=== PATIENT | male | born 1950 | race Caucasian/White ===

== ENCOUNTER 2017-04-24 09:08 | Emergency (ER) | payer OTHER ==
[~2017-04-24] VITALS: Ht 180.3 cm; Wt 85.6 kg
[~2017-04-24 09:08] MED LIST: ASPI81TA21 PO; CLOP75 PO; RAMI1.252 PO; TRAM50 PO; WELC625T2 PO; ZOCO5TAB PO
[2017-04-24 09:13] VITALS: BP 124/64; PULSE 82; RESP 16; TEMP 97.7; O2SAT 98
--- NOTE | 2017-04-24 09:24 | PD ---
HPI Chief Complaint: Cold / Flu Symptoms Time Seen by Provider: 09:23 Travel History International Travel<30 days: No Contact w/Intl Traveler<30days: No Traveled to known affect area: No History of Present Illness HPI 67-year-old male with long history of smoking presents to emergency department with cough 3 weeks. Patient complains of sinus congestion, headache , pressure, postnasal drip. Cough worse at night. Productive cough through the day. He also continues to have chest congestion but not chest pain. Patient has been on amoxicillin 875 twice daily for 2 weeks without improvement. Patient has no history of needing a inhaler or prednisone in the past. Patient denies significant fever, nausea, vomiting, or diarrhea. He has no known drug allergies. PFSH Past Medical History Hx Anticoagulant Therapy: Yes (plavix, asa 81mg) Cardiac Catheterization: Yes Cardiovascular Problems: Yes (htn on meds, 8 stents, [place]) High Cholesterol: Yes Coronary Artery Disease: Yes Diminished Hearing: No Past Surgical History Coronary Stent: Yes Social History Alcohol Use: No Tobacco Use: Yes (1/2 PPD) Substance Use: No Allergies-Medications (Allergen,Severity, Reaction): Coded Allergies: No Known Allergies (Unverified Adverse Reaction, Unknown, 04/24/17) Reported Meds & Prescriptions Reported Meds & Active Scripts Active Flonase Nasal [place] (Fluticasone Nasal [place]) 50 Mcg/Act [place] 100 Mcg EACH NARE BID Ventolin Hfa 18 GM Inh (Albuterol Sulfate) 90 Mcg/Act Aer 2 Puff INH Q4-6H PRN Prednisone (21) 10 mg tab Dose Pack (Prednisone) 10 Mg Pack 10 Mg PO DIRECTED Levaquin (Levofloxacin) 750 Mg Tablet 750 Mg PO DAILY 10 Days Reported Lansoprazole 30 Mg Capdr 30 Mg PO DAILY Vytorin (Ezetimibe-Simvastatin) 10-80 Mg Tab 1 Tab PO HS Aspirin 81 Mg Chew 81 Mg CHEW DAILY Ramipril 10 Mg Cap 10 Mg PO DAILY Plavix (Clopidogrel Bisulfate) 75 Mg Tab 75 Mg PO DAILY Welchol (Colesevelam HCl) 625 Mg Tab 1,875 Mg PO BID Diazepam 5 Mg Tab 5 Mg PO DAILY Review of Systems Except as stated in HPI: all other systems reviewed are Neg General / Constitutional: No: Fever, Chills Eyes: No: Visual changes HENT: Positive: Headaches, Sore Throat, Rhinitis, Rhinorrhea, Congestion, Earache (right ear pressure), No: Vertigo, Lightheadedness, Nosebleed, Neck Stiffness, Neck Pain, Masses, Gingival Bleeding, Dental Difficulties, Ear Discharge Cardiovascular: No: Chest Pain or Discomfort Respiratory: Positive: Cough, No: Shortness of Breath, Wheezing, Sneezing, Orthopnea, Hemoptysis, Night Sweats, Pleuritic Pain Gastrointestinal: No: Nausea, Vomiting, Diarrhea, Abdominal Pain Genitourinary: No: Dysuria Musculoskeletal: No: Pain Skin: No Rash Neurologic: No: Weakness Psychiatric: No: Depression Endocrine: No: Polydipsia Hematologic/Lymphatic: No: Easy Bruising Physical Exam Narrative GENERAL: Patient appears nonacute distress. SKIN: Warm and dry. Normal color. Normal turgor. HEAD: Atraumatic. Normocephalic. EYES: Pupils equal and round. No scleral icterus. No injection or drainage. ENT: No nasal bleeding or discharge. Mucous membranes pink and moist. Patient has moderate sinus tenderness with palpation to the frontal and maxillary sinuses bilaterally. Right TM is dull without significant injection. Posterior pharynx appears somewhat wrong with cobblestoning and postnasal drip present. Tonsils are normal in appearance without exudate. NECK: Trachea midline. Supple and nontender.. CARDIOVASCULAR: Regular rate and rhythm. RESPIRATORY: No accessory muscle use. Coarse breath sounds throughout to auscultation. No significant wheezes or rales appreciated. Breath sounds equal bilaterally. GASTROINTESTINAL: Abdomen soft, non-tender, nondistended. Hepatic and splenic margins not palpable. MUSCULOSKELETAL: Extremities without clubbing, cyanosis, or edema. No obvious deformities. NEUROLOGICAL: Awake and alert. No obvious cranial nerve deficits. Motor grossly within normal limits. Five out of 5 muscle strength in the arms and legs. Normal speech. PSYCHIATRIC: Appropriate mood and affect; insight and judgment normal. Data Data Last Documented VS Vital Signs Date Time Temp Pulse Resp B/P (MAP) Pulse Ox O2 Delivery O2 Flow Rate FiO2 04/24/17 09:13 97.7 82 16 124/64 (84) 98 Orders Orders Albuterol-Ipratropium Neb (Duoneb Neb) (04/24/17 09:30) Prednisone (Deltasone) (04/24/17 09:30) Levofloxacin (Levaquin) (04/24/17 09:30) Chest, Pa & Lat (04/24/17 ) [facility] Medical Decision Making Medical Screen Exam Complete: Yes Emergency Medical Condition: Yes Medical Record Reviewed: Yes Differential Diagnosis Chronic sinusitis. COPD exacerbation. Pneumonia. Narrative Course Chest x-ray is ordered. Patient is given Levaquin 750 mg by mouth now. Patient is given 60 mg prednisone by mouth now. Patient is given DuoNeb 1 now. Chest x-ray shows no acute process per radiologist. Patient continued on Levaquin 750 daily for 10 days. Patient continued on prednisone dosepak as prescribed. Patient is given Flonase nasal spray 2 sprays each nostril daily. Patient continued on albuterol metered-dose inhaler 2 puffs every 4-6 hours when necessary cough and wheeze. Patient is encouraged to quit smoking as soon as possible. Patient should follow with his primary care physician in the next week to ensure improvement. Diagnosis Primary Impression: Sinusitis Qualified Codes: J32.4 - Chronic pansinusitis Additional Impression: Bronchitis Referrals: Primary Care Physician Patient Instructions: General Instructions, How to Stop Smoking (DC), How to Use a Metered-Dose Inhaler (DC) Additional Instructions: Patient continued on Levaquin 750 daily for 10 days. Patient continued on prednisone dosepak as prescribed. Patient is given Flonase nasal spray 2 sprays each nostril daily. Patient continued on albuterol metered-dose inhaler 2 puffs every 4-6 hours when necessary cough and wheeze. Patient is encouraged to quit smoking as soon as possible. Patient should follow with his primary care physician in the next week to ensure improvement. Med/Other Pt SpecificInfo: Prescription(s) given Scripts Fluticasone Nasal [place] (Flonase Nasal [place]) 50 Mcg/Act [place] 100 MCG EACH NARE BID for Allergies, #1 BOTTLE 0 Refills Prov: Billy Barron MD 04/24/17 Albuterol 18 GM Inh (Ventolin Hfa 18 GM Inh) 90 Mcg/Act Aer 2 PUFF INH Q4-6H Y for SHORTNESS OF BREATH, #1 INHALER 0 Refills Prov: Billy Barron MD 04/24/17 Prednisone (21) 10 mg tab Dose Pack (Prednisone (21) 10 mg tab Dose Pack) 10 Mg Pack 10 MG PO DIRECTED for Inflammation, #1 DSPK 0 Refills Prov: Billy Barron MD 04/24/17 Levofloxacin (Levaquin) 750 Mg Tablet 750 MG PO DAILY for Infection for 10 Days, #10 TAB 0 Refills Prov: Billy Barron MD 04/24/17 Disposition: 01 DISCHARGE HOME Condition: Stable Hieu Bush Apr 24, 2017 09:24
[2017-04-24] MEDS ORDERED: PLAV75TA29 PO (09:27)
[2017-04-24] MEDS ORDERED: DIAZ5TAB PO (09:27)
[2017-04-24] MEDS ORDERED: COLE625 PO (09:27)
[2017-04-24] MEDS ORDERED: VYTO10TA25 PO (09:27)
[2017-04-24] MEDS ORDERED: ASPI-516 CHEW (09:27)
[2017-04-24] MEDS ORDERED: LANS30CA PO (09:27)
[2017-04-24] MEDS ORDERED: RAMI10CA PO (09:27)
[2017-04-24] MEDS ORDERED: LEVOFLOXACIN 750 MG TAB PO ONE (09:30)
[2017-04-24] MEDS ORDERED: predniSONE 20 MG TAB PO ONE (09:30)
[2017-04-24] MEDS ORDERED: RESP: ALBUTEROL 2.5 MG/IPRATROPIUM 0.5 MG NEB (SCH) INH ONE (09:30)
[2017-04-24] MEDS ORDERED: LEVA750T9 PO (10:16)
[2017-04-24] MEDS ORDERED: PRED10PA PO (10:16)
[2017-04-24] MEDS ORDERED: VENTAER INH (10:16)
[2017-04-24] MEDS ORDERED: FLUT1SPR5 EACH NARE (10:20)
--- NOTE | 2017-04-24 10:35 | RADRPT ---
EXAM DATE/TIME: 04/24/2017 00:00 [facility] COMPARISON: No previous studies available for comparison. INDICATIONS : Cough, congestion, sinus pressure x 3 weeks. MEDICAL HISTORY : Myocardial infarction. Hypertension Hypercholesterolemia. Smoker. SURGICAL HISTORY : Cardiac cath w/ stent. ENCOUNTER: Initial ACUITY: 3 weeks PAIN SCORE: 0/10 LOCATION: chest FINDINGS: PA and lateral views of the chest demonstrate the lungs to be symmetrically aerated without evidence of mass, infiltrate or effusion. The cardiomediastinal contours are unremarkable. Osseous structure s are intact. CONCLUSION: 1. No acute cardiopulmonary disease. Juancarlos Kaplan MD on April 24, 2017 at 10:33 Board Certified Radiologist. This report was verified electronically.
== END 2017-04-24 10:44 | disposition home or self-care (01) ==
LOC: PHEFT 09:08
DX: J32.4 Chronic pansinusitis (principal); J40 Bronchitis, not specified as acute or chronic; E78.00 Pure hypercholesterolemia, unspecified; F17.210 Nicotine dependence, cigarettes, uncomplicated; I10 Essential (primary) hypertension; I25.10 Atherosclerotic heart disease of native coronary artery without angina pectoris; Z79.02 Long term (current) use of antithrombotics/antiplatelets; Z79.82 Long term (current) use of aspirin; Z95.5 Presence of coronary angioplasty implant and graft
CPT/HCPCS: 71020; 94664; 99284; J7512

== ENCOUNTER 2017-08-11 07:23 | Emergency (ER) | payer OTHER ==
[~2017-08-11] VITALS: Ht 180.3 cm; Wt 86.7 kg
[~2017-08-11 07:23] MED LIST changes: +ASPI-516 CHEW; -ASPI81TA21 PO; -CLOP75 PO; +COLE625 PO; +DIAZ5TAB PO; +FLUT1SPR5 EACH NARE; +LANS30CA PO; +LEVA750T9 PO; +PLAV75TA29 PO; +PRED10PA PO; -RAMI1.252 PO; +RAMI10CA PO; -TRAM50 PO; +VENTAER INH; +VYTO10TA25 PO; -WELC625T2 PO; -ZOCO5TAB PO
[2017-08-11 07:25] VITALS: BP 119/64; PULSE 77; RESP 16; TEMP 97.8; O2SAT 97
--- NOTE | 2017-08-11 07:31 | PD ---
HPI Chief Complaint: ENT Complaint Time Seen by Provider: 07:31 Travel History International Travel<30 days: No Contact w/Intl Traveler<30days: No Traveled to known affect area: No History of Present Illness HPI 67-year-old male came to the emergency room with his with history of sore throat. Patient says that every time he tries to swallow his throat hurts. This started off as a pneumonia and respiratory infection 1 month ago. Patient had gone to urgent care and was given a prescription of Augmentin for 7 days and was told that he had some fluid in his ears. The last dose of the antibiotic as today. However patient says his symptoms have not improved. No history of fever or chills. Vital signs were stable. Patient is a smoker. He also has history of coronary artery disease with multiple stents. No history of chest pain. Patient is from [place] and is here on vacation. His primary care is in [place]. PFSH Past Medical History Narrative Medical List of his past medical, surgical, social and family history reviewed from the nursing note. Hx Anticoagulant Therapy: Yes Cardiac Catheterization: Yes Cardiovascular Problems: Yes (CHOL) High Cholesterol: Yes Coronary Artery Disease: Yes Diabetes: No Diminished Hearing: No Past Surgical History Cardiac Surgery: Yes (STENTS) Coronary Stent: Yes Social History Alcohol Use: No Tobacco Use: Yes (4PPD) Substance Use: No Allergies-Medications (Allergen,Severity, Reaction): Coded Allergies: No Known Allergies (Unverified Adverse Reaction, Unknown, 08/11/17) Comments No known drug allergies. Reported Meds & Prescriptions Reported Meds & Active Scripts Active Flonase Nasal [place] (Fluticasone Nasal [place]) 50 Mcg/Act [place] 100 Mcg EACH NARE BID Ventolin Hfa 18 GM Inh (Albuterol Sulfate) 90 Mcg/Act Aer 2 Puff INH Q4-6H PRN Prednisone (21) 10 mg tab Dose Pack (Prednisone) 10 Mg Pack 10 Mg PO DIRECTED Levaquin (Levofloxacin) 750 Mg Tablet 750 Mg PO DAILY 10 Days Reported Lansoprazole 30 Mg Capdr 30 Mg PO DAILY Vytorin (Ezetimibe-Simvastatin) 10-80 Mg Tab 1 Tab PO HS Aspirin 81 Mg Chew 81 Mg CHEW DAILY Ramipril 10 Mg Cap 10 Mg PO DAILY Plavix (Clopidogrel Bisulfate) 75 Mg Tab 75 Mg PO DAILY Welchol (Colesevelam HCl) 625 Mg Tab 1,875 Mg PO BID Diazepam 5 Mg Tab 5 Mg PO DAILY Narrative Medication List of his home medications reviewed from the nursing note. Review of Systems Except as stated in HPI: all other systems reviewed are Neg HENT: Positive: Sore Throat Physical Exam Narrative GENERAL: Awake, alert, anxious, no obvious distress SKIN: Focused skin assessment warm/dry. HEAD: Atraumatic. Normocephalic. EYES: Pupils equal and round. No scleral icterus. No injection or drainage. ENT: No nasal bleeding or discharge. Mucous membranes pink and moist. No erythema or exudates of the pharynx. No stridor. NECK: Trachea midline. No JVD. CARDIOVASCULAR: Regular rate and rhythm. No murmur appreciated. RESPIRATORY: No accessory muscle use. Clear to auscultation. Breath sounds equal bilaterally. GASTROINTESTINAL: Abdomen soft, non-tender, nondistended. Hepatic and splenic margins not palpable. MUSCULOSKELETAL: No obvious deformities. No clubbing. No cyanosis. No edema. NEUROLOGICAL: Awake and alert. No obvious cranial nerve deficits. Motor grossly within normal limits. Normal speech. PSYCHIATRIC: Appropriate mood and affect; insight and judgment normal. Data Data Last Documented VS Orders Orders Complete Blood Count With Diff (08/11/17 07:37) Basic Metabolic Panel (Bmp) (08/11/17 07:37) Electrocardiogram (08/11/17 ) Ct Soft Tiss Neck W Iv Cont (08/11/17 ) Iohexol 350 Inj (Omnipaque 350 Inj) (08/11/17 08:43) Ed Discharge Order (08/11/17 09:32) Labs Laboratory Tests Test 08/11/17 07:35 White Blood Count 7.7 TH/MM3 Red Blood Count 5.61 MIL/MM3 Hemoglobin 16.6 GM/DL Hematocrit 48.7 % Mean Corpuscular Volume 86.8 FL Mean Corpuscular Hemoglobin 29.6 PG Mean Corpuscular Hemoglobin Concent 34.2 % Red Cell Distribution Width 13.4 % Platelet Count 144 TH/MM3 Mean Platelet Volume 8.6 FL Neutrophils (%) (Auto) 60.2 % Lymphocytes (%) (Auto) 26.0 % Monocytes (%) (Auto) 5.7 % Eosinophils (%) (Auto) 4.1 % Basophils (%) (Auto) 4.0 % Neutrophils # (Auto) 4.7 TH/MM3 Lymphocytes # (Auto) 2.0 TH/MM3 Monocytes # (Auto) 0.4 TH/MM3 Eosinophils # (Auto) 0.3 TH/MM3 Basophils # (Auto) 0.3 TH/MM3 CBC Comment DIFF FINAL Differential Comment Blood Urea Nitrogen 12 MG/DL Creatinine 0.96 MG/DL Random Glucose 108 MG/DL Calcium Level 8.8 MG/DL Sodium Level 139 MEQ/L Potassium Level 3.9 MEQ/L Chloride Level 106 MEQ/L Carbon Dioxide Level 28.9 MEQ/L Anion Gap 4 MEQ/L Estimat Glomerular Filtration Rate 78 ML/MIN MDM Medical Decision Making Medical Screen Exam Complete: Yes Emergency Medical Condition: Yes Medical Record Reviewed: Yes Interpretation(s) Twelve-lead EKG was reviewed by me. Sinus rhythm, normal axis, nonspecific ST- T wave changes. Heart rate of 76 bpm. Differential Diagnosis Throat mass, anxiety Narrative Course 9:30 AM blood test results of back and within acceptable limits. CT scan of the soft tissue of the neck is read as some sinus disease but otherwise negative. At this point given his complaints of not sure what else to do in the emergency room. There was a slight concerned if the throat pain has anything to do with angina but with negative EKG I am going to start the pursuit there. I will recommend him to quit smoking and follow up with his primary care when he goes back home. Patient will be discharged. Procedures EKG Prior to Arrival: No Diagnosis Primary Impression: Chronic throat pain Additional Impression: Needs smoking cessation education Referrals: Primary Care Physician Additional Instructions: Follow-up with your primary care when you get back home. Return to the ER if condition worsens or any other new concerns. You must consider quitting smoking since you have history of heart disease. Med/Other Pt SpecificInfo: No Change to Meds Disposition: DISCHARGE HOME Condition: Stable Mari Monreal MD Aug 11, 2017 07:31
[2017-08-11 08:06] LABS: AUTOMATED NEUTROPHIL # 4.7 TH/MM3 (1.8-7.7); BASOPHIL # 0.3 TH/MM3 (0-0.2); EOSINOPHIL # 0.3 TH/MM3 (0-0.4); EOSINOPHIL % 4.1 % (0.0-4.0); HEMATOCRIT 48.7 % (39.0-51.0); HEMOGLOBIN 16.6 GM/DL (13.0-17.0); MEAN CELL VOLUME 86.8 FL (80.0-100.0); MEAN CORPUSCULAR HEMOGLOBIN 29.6 PG (27.0-34.0); MEAN CORPUSCULAR HGB CONC 34.2 % (32.0-36.0); MEAN PLATELET VOLUME 8.6 FL (7.0-11.0); MONO % 5.7 % (0.0-8.0); MONOCYTE # 0.4 TH/MM3 (0-0.9); NEUT % 60.2 % (16.0-70.0); PLATELET COUNT 144 TH/MM3 (150-450); RED BLOOD COUNT 5.61 MIL/MM3 (4.50-5.90); RED CELL DISTRIBUTION WIDTH 13.4 % (11.6-17.2); WHITE BLOOD COUNT 7.7 TH/MM3 (4.0-11.0)
[2017-08-11 08:16] LABS: CALCIUM 8.8 MG/DL (8.5-10.1)
[2017-08-11 08:17] LABS: BICARBONATE 28.9 MEQ/L (21.0-32.0)
[2017-08-11 08:20] LABS: CREATININE 0.96 MG/DL (0.60-1.30)
[2017-08-11] MEDS ORDERED: IOHEXOL 350 MG/ML 10 ML VIAL (for RAD DIAG) IVCONTRAST ONE (08:43)
--- NOTE | 2017-08-11 09:25 | RADRPT ---
EXAM DATE/TIME: 08/11/2017 08:34 [facility] COMPARISON: No previous studies available for comparison. INDICATIONS : Sore throat and taking antibiotics for one month with no improvement. IV CONTRAST: 70 cc Omnipaque 350 (iohexol) IV RADIATION DOSE: 12.7 CTDIvol (mGy) MEDICAL HISTORY : Hypercholesterolemia. Cardiovascular disease Gastroesophageal reflux disease.Anticoagulant therapy. SURGICAL HISTORY : Coronary artery stent. ENCOUNTER: Initial ACUITY: 3 days PAIN SCALE: 4/10 LOCATION: throat TECHNIQUE: Volumetric scanning of the neck was performed. Using automated exposure control and adjustment of th e mA and/or kV according to patient size, radiation dose was kept as low as reasonably achievable to obtain optimal diagnostic quality images. DICOM format image data is available electronically for r eview and comparison. FINDINGS: The visualized brain and orbitofacial structures are unremarkable. There is moderate mucosal sinus disease present with confluent or near confluent opacification of mul tiple anterior ethmoid sinuses and mild mucosal thickening in the maxillary antra. The salivary glands are symmetric and normal. There is small low-density focus in the left lobe of thyroid. Thyroid gland is otherwise mildly heter ogeneous. No suspicious lesions. There is no evidence of cervical lymphadenopathy. No supraclavicular lymphadenopathy is identified. T he visualized upper mediastinum is clear. The upper aerodigestive tract is symmetric and grossly unremarkable. Lung apices are clear. The bony elements are benign. CONCLUSION: Mild-moderate mucosal sinus disease. Valdez Watkins MD on August 11, 2017 at 9:14 Board Certified Radiologist. This report was verified electronically.
--- NOTE | 2017-08-12 00:09 | EKG ---
Date Performed: 08/11/2017 Time Performed: 07:59:21 PTAGE: 67 years EKG: Sinus rhythm PROBABLE SEPTAL MYOCARDIAL INFARCTION ABNORMAL ECG NO PREVIOUS TRACING DOCTOR: Mariana Tai Interpretating Date/Time 08/12/2017 00:01:52
== END 2017-08-11 10:01 | disposition home or self-care (01) ==
LOC: PHED 07:23
DX: R07.0 Pain in throat (principal); G89.29 Other chronic pain; R94.31 Abnormal electrocardiogram [ECG] [EKG]; I25.10 Atherosclerotic heart disease of native coronary artery without angina pectoris; Z95.5 Presence of coronary angioplasty implant and graft; E78.00 Pure hypercholesterolemia, unspecified; F17.200 Nicotine dependence, unspecified, uncomplicated
CPT/HCPCS: 70491; 80048; 85025; 93005; 99285; Q9967

== ENCOUNTER 2018-07-08 19:18 | Observation (INO) ==
--- NOTE | 2018-07-08 19:57 | ED ---
HPI General Chief Complaint: Arrhythmia / Palpitations Stated Complaint: Chest pain Time Seen by Provider: 07/08/18 19:54 Source: patient and family Mode of arrival: ambulatory Limitations: no limitations History of Present Illness HPI narrative: 68-year-old male patient with history of CAD status post 8 stents , presents to the ER today because he states that he started having intermittent chest pains that lasts just for a few seconds at a time and go away. He states that it feels like "twinges". He states that he has no pain in the between. He denies any shortness of breath, coughing, nausea, abdominal pains, or any other issues. He states that is occurring intermittently, has happened twice while he was sitting in the ER. Modifying Factors: None Associated Signs & Symptoms: Intermittent chest pain Risk Factors: Cardiac history Related Data Home Medications Medication Instructions Recorded Confirmed aspirin [Aspirin Low Dose] 81 mg PO DAILY 02/23/18 07/08/18 clopidogrel [Plavix] 75 mg PO DAILY 02/23/18 07/08/18 colesevelam [WelChol] 3 tab PO BID 02/23/18 07/08/18 diazepam 5 mg PO DAILY 02/23/18 02/23/18 ezetimibe-simvastatin [Vytorin 1 tab PO DAILY 02/23/18 07/08/18 10-80] lansoprazole 15 mg PO DAILY 02/23/18 07/08/18 ramipril 10 mg PO DAILY 02/23/18 07/08/18 Previous Rx's Medication Instructions Recorded loratadine [Claritin] 10 mg PO Q24H #14 tab 02/23/18 Allergies Allergy/AdvReac Type Severity Reaction Status Date / Time No Known Allergies Allergy Unverified 02/23/18 07:24 Review of Systems ROS: all other systems reviewed are negative [facility] Medical History Medical History Anxiety (Acute) CAD (coronary artery disease) (Acute) GERD (gastroesophageal reflux disease) (Acute) HTN (hypertension) (Acute) High cholesterol (Acute) Surgical History Surgical History H/O heart artery stent (Acute) Social History Social History Substance History: No History of Abuse Smoking Status: Current every day smoker Tobacco Type: Cigarettes How Often Do You Have a Drink Containing Alcohol: 4 or more times a week Recent Out of Country Travel within the Last 8 Weeks: No Immunization History Tetanus Immunization: >5 Years Exam Narrative Exam Narrative: GENERAL: Well-developed elderly male patient currently in mild distress. Awake and oriented x3. SKIN: Focused skin assessment warm/dry. HEAD: Atraumatic. Normocephalic. EYES: Pupils equal and round. No scleral icterus. No injection or drainage. ENT: No nasal bleeding or discharge. Mucous membranes pink and moist. NECK: Trachea midline. No JVD. CARDIOVASCULAR: Regular rate and rhythm. No murmur appreciated. RESPIRATORY: No accessory muscle use. Clear to auscultation. Breath sounds equal bilaterally. GASTROINTESTINAL: Abdomen soft, non-tender, nondistended. Hepatic and splenic margins not palpable. MUSCULOSKELETAL: No obvious deformities. No clubbing. No cyanosis. No edema. NEUROLOGICAL: Awake and alert. No obvious cranial nerve deficits. Motor grossly within normal limits. Normal speech. PSYCHIATRIC: Anxious mood and affect; insight and judgment normal. Course Initial Documented Vital Signs Pulse Rate 78 07/08/18 19:20 Pulse Oximetry 98 07/08/18 19:20 Last Documented Vital Signs Temperature 97.4 F L 07/08/18 19:35 Pulse Rate 70 07/08/18 20:25 Respiratory Rate 20 07/08/18 20:25 Blood Pressure 116/60 07/08/18 20:25 Pulse Oximetry 96 07/08/18 20:25 Medical Decision Making [facility] Narrative Medical decision making narrative: EMS noted that he did have a PVC while he was on the ride, he also notes that he did have a chest pain episode at that time. It only lasts a few seconds and then goes completely away. He is observed in the ER and he states for 2 hours in the ER he had no further episodes. Lab work is fairly unremarkable. Vital signs are stable. At this point, I have discussed the findings with the patient and have discussed observation admission versus release with follow-up to his sports analyst and primary care doctor. Patient states that he would rather go home at this point. He should return for any worsening in symptoms. The plan was discussed with him and his and they state understanding. Medical Screen Exam Complete: Yes Emergency Medical Condition: Yes Differential Diagnosis Differential Diagnosis: PVCs versus dysrhythmias versus ACS Lab Data Lab results reviewed: Yes I reviewed the patient's lab results. Result diagrams: 07/08/18 20:15 07/08/18 20:15 Lab Results 07/08/18 07/08/18 Range/Units 20:15 20:15 CBC w Diff Auto diff final WBC 5.1 (4.0-11.0) th/mm3 RBC 5.07 (4.50-5.90) mil/mm3 Hgb 14.8 (13.0-17.0) gm/dL Hct 44.9 (39.0-51.0) % MCV 88.5 (80.0-100.0) fL MCH 29.1 (27.0-34.0) pg MCHC 32.9 (32.0-36.0) % RDW 13.6 (11.6-17.2) % Plt Count 169 (150-450) th/mm3 MPV 10.1 (7.0-11.0) fL Neut % (Auto) 44.5 (16.0-70.0) % Lymph % (Auto) 40.1 (9.0-44.0) % [place] % (Auto) 7.6 (0.0-8.0) % Eos % (Auto) 6.5 H (0.0-4.0) % Baso % (Auto) 1.3 (0.0-2.0) % Neut # (Auto) 2.3 (1.8-7.7) th/mm3 Lymph # (Auto) 2.0 (1.0-4.8) th/mm3 [place] # (Auto) 0.4 (0.0-0.9) th/mm3 Eos # (Auto) 0.3 (0.0-0.4) th/mm3 Baso # (Auto) 0.1 (0.0-0.2) th/mm3 WBC Differential . Differential Comment . Sodium 139 (136-145) meq/L Potassium 3.6 (3.5-5.1) meq/L Chloride 108 H (98-107) meq/L Carbon Dioxide 26.8 (21.0-32.0) meq/L Anion Gap 4 L (5-15) meq/L BUN 15 (7-18) mg/dL Creatinine 1.10 (0.60-1.30) mg/dL Estimated GFR 67 L (>89) mL/min Random Glucose 132 H (74-106) mg/dL Calcium 8.1 L (8.5-10.1) mg/dL Total Bilirubin 0.3 (0.2-1.0) mg/dL AST 22 (15-37) U/L ALT 27 (12-78) U/L Alkaline Phosphatase 77 (45-117) U/L Troponin I Less than 0.02 L (0.02-0.05) ng/mL Total Protein 6.6 (6.4-8.2) g/dL Albumin 3.5 (3.4-5.0) g/dL Imaging Data Attestation: I personally reviewed and interpreted this imaging study as follows : Radiologist's impression: Chest X-Ray 07/08/18 19:54 CONCLUSION: The lungs are clear. ECG Data Interpretation: EKG shows a normal sinus rhythm at a rate of 70 bpm. No signs of acute ST elevations or depressions. Discharge Plan Discharge Disposition Patient Disposition: Discharge Home Discharge Condition Condition: Stable Discharge Order Discharge Orders: Discharge Order (Routine); Ordered 07/08/18 Ordered By: Rio Preciado Discharge Details Anticipated Discharge Date: 07/08/18 Diagnosis: Palpitation Physicians Team ED Provider: Rio Preciado Primary Care Provider: Shane Lucio Rxs /Orders / Referrals /Forms Prescriptions: No Action diazepam 5 mg Tablet 5 mg PO DAILY RF: 0 clopidogrel [Plavix] 75 mg Tablet 75 mg PO DAILY RF: 0 aspirin [Aspirin Low Dose] 81 mg Tablet,Delayed Release (Dr/Ec) 81 mg PO DAILY RF: 0 colesevelam [WelChol] 625 mg Tablet 3 tab PO BID RF: 0 lansoprazole 15 mg Capsule,Delayed Release(Dr/Ec) 15 mg PO DAILY RF: 0 ramipril 10 mg Capsule 10 mg PO DAILY RF: 0 ezetimibe-simvastatin [Vytorin 10-80] 10-80 mg Tablet 1 tab PO DAILY RF: 0 loratadine [Claritin] 10 mg tablet 10 mg PO Q24H Qty: 14 RF: 0 Discharge Instructions Patient Printed Instructions: Heart Palpitations (ED) Status ED Status: With Doctor
--- NOTE | 2018-07-08 20:12 | XR ---
EXAM DATE: 07/08/2018 8:09 PM EST AGE/SEX: 68 years / Male INDICATIONS: Chest pain. CLINICAL DATA: This is the patient's initial encounter. Patient reports that signs and symptoms have been present for 1 day and indicates a pain score of 8/10. MEDICAL/SURGICAL HISTORY: . Hypercholesterolemia. Cardiovascular disease Gastroesophageal reflu x disease. Anticoagulant therapy. . Coronary artery stent. COMPARISON: [facility], CHEST 1V SINGLE AP, 02/23/2018. . FINDINGS: 2 frontal views of the chest demonstrate the lungs to be symmetrically aerated without evidence of ma ss, infiltrate or effusion. The cardiomediastinal contours are unremarkable. Osseous structures are intact. CONCLUSION: The lungs are clear. Electronically signed by: Mg Mendoza MD Board Certified Radiologist 07/08/2018 8:11 PM EST
[2018-07-08 20:40] LABS: Baso # (Auto) 0.1 th/mm3 (0.0-0.2); Baso % (Auto) 1.3 % (0.0-2.0); Eos # (Auto) 0.3 th/mm3 (0.0-0.4); Eos % (Auto) 6.5 % (0.0-4.0); Hematocrit 44.9 % (39.0-51.0); Hemoglobin 14.8 gm/dL (13.0-17.0); Lymph % (Auto) 40.1 % (9.0-44.0); Mean Corpuscular HGB Conc 32.9 % (32.0-36.0); Mean Corpuscular Hemoglobin 29.1 pg (27.0-34.0); Mean Corpuscular Volume 88.5 fL (80.0-100.0); Mean Platelet Volume 10.1 fL (7.0-11.0); Mono # (Auto) 0.4 th/mm3 (0.0-0.9); Mono % (Auto) 7.6 % (0.0-8.0); Neut # (Auto) 2.3 th/mm3 (1.8-7.7); Neut % (Auto) 44.5 % (16.0-70.0); Platelet Count 169 th/mm3 (150-450); Red Blood Count 5.07 mil/mm3 (4.50-5.90); Red Cell Distribution Width 13.6 % (11.6-17.2); White Blood Count 5.1 th/mm3 (4.0-11.0)
[2018-07-08 20:54] LABS: Chloride 108 meq/L (98-107); Potassium 3.6 meq/L (3.5-5.1); Sodium 139 meq/L (136-145)
[2018-07-08 20:57] LABS: Calcium 8.1 mg/dL (8.5-10.1)
[2018-07-08 20:58] LABS: Albumin 3.5 g/dL (3.4-5.0); Anion Gap 4 meq/L (5-15); Blood Urea Nitrogen 15 mg/dL (7-18); Carbon Dioxide 26.8 meq/L (21.0-32.0); Glucose,Random 132 mg/dL (74-106)
[2018-07-08 21:01] LABS: Alanine Aminotransferase 27 U/L (12-78); Aspartate Aminotransferase 22 U/L (15-37); Glomerular Filtration Rate 67 mL/min (>89)
[2018-07-08 21:03] LABS: Total Protein 6.6 g/dL (6.4-8.2)
[2018-07-08 21:04] LABS: Alkaline Phosphatase 77 U/L (45-117)
[2018-07-08] MEDS ORDERED: Acetaminophen 500 MG Tablet PO PRN (22:27)
[2018-07-08] MEDS ORDERED: Morphine Inj 4 MG/ML Vial IV.PUSH PRN (22:27)
[2018-07-08] MEDS: Heparin - SQ 10,000 UNITS/ML Vial SQ SCH (23:00)
[2018-07-08 23:47] LABS: Creatine Kinase 206 U/L (39-308)
[2018-07-09 00:16] VITALS: RESP 20
[2018-07-09 01:41] VITALS: O2SAT 98
[2018-07-09] MEDS ORDERED: Regadenoson Inj 0.4 MG/5 ML Syringe IV.PUSH ONE (08:57)
[2018-07-09] MEDS ORDERED: Pantoprazole Sodium 20 MG DR Tablet PO SCH (09:00)
[2018-07-09] MEDS: Heparin - SQ 10,000 UNITS/ML Vial SQ SCH (09:00)
[2018-07-09] MEDS ORDERED: Ramipril 5 MG Capsule PO SCH (09:00)
[2018-07-09] MEDS ORDERED: EZETIMIBE SIMVASTATIN PO SCH (09:00)
[2018-07-09] MEDS ORDERED: LANSOPRAZOLE 15 MG PO SCH (09:00)
[2018-07-09] MEDS ORDERED: Ezetimibe 10 MG Tablet PO SCH (09:00)
--- NOTE | 2018-07-09 09:00 | P.HPIM ---
History of Present Illness Primary Care Physician: Shane Lucio DO Chief Complaint: chest pain History of Present Illness: This is a 68-year-old male patient with a known medical history of CAD stent placement x 8 and hyperlipidemia who presented to the ED with complaints of chest pain. Patient states that he was sweeping his garage for over an hour and a half yesterday and shortly after he developed a left-sided chest pain he states that the pain was characteristically sharp in nature, denied any radiation of the pain, lasted a couple seconds rated a 4 out of 10 at its worst on pain scale without associated nausea, vomiting, shortness of breath or sweating. He states that the pain went away and then over the course of the next couple hours the pain kept coming and going without any known aggravating or alleviating factors. 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 He states that his last stress test was roughly a year ago which was reportedly unremarkable. Patient does continue to smoke a half a pack per day of cigarettes for the last 20 years. Drinks a glass of wine per night. Is compliant with his medications. At this time the pain has improved, he has not had complaints of pain since midnight. Review of Systems Review of Systems: all other systems reviewed are negative [facility] Medical History Medical History Anxiety (Acute) CAD (coronary artery disease) (Acute) GERD (gastroesophageal reflux disease) (Acute) HTN (hypertension) (Acute) High cholesterol (Acute) Surgical History Surgical History H/O heart artery stent (Acute) Family History Family History Other Family history in first degree relatives is unremarkable Social History Social History Substance History: No History of Abuse Second Hand Smoke Exposure: Yes Smoking Status: Current every day smoker Tobacco Type: Cigarettes How Often Do You Have a Drink Containing Alcohol: 4 or more times a week Recent Travel in [facility] within the Last 8 Weeks: No Recent Out of Country Travel within the Last 8 Weeks: No Immunization History Tetanus Immunization: >5 Years Medications and Allergies Allergies Allergy/AdvReac Type Severity Reaction Status Date / Time No Known Allergies Allergy Unverified 02/23/18 07:24 Home Medications Medication Instructions Recorded Confirmed Type aspirin [Aspirin Low Dose] 81 mg PO DAILY 02/23/18 07/08/18 History clopidogrel [Plavix] 75 mg PO DAILY 02/23/18 07/08/18 History colesevelam [WelChol] 3 tab PO BID 02/23/18 07/08/18 History diazepam 5 mg PO PRN PRN 02/23/18 07/09/18 History ezetimibe-simvastatin [Vytorin 1 tab PO DAILY 02/23/18 07/08/18 History 10-80] lansoprazole 15 mg PO DAILY 02/23/18 07/08/18 History ramipril 10 mg PO DAILY 02/23/18 07/08/18 History Active Medications: Active Medications Acetaminophen (Tylenol) 500 mg PO Q4H PRN PRN Reason: HEADACHE Aspirin (Ecotrin) 81 mg PO DAILY [facility] Atorvastatin Calcium (Lipitor) 40 mg PO DAILY [facility] Clopidogrel Bisulfate (Plavix) 75 mg PO DAILY [facility] Ezetimibe (Zetia) 10 mg PO DAILY [facility] Heparin Sodium (Porcine) (Heparin Inj) 5,000 units SQ Q12H [facility] Last Admin: 07/08/18 23:00 Dose: Not Given Morphine Sulfate (Morphine Inj) 2 mg IV.PUSH Q4H PRN PRN Reason: PAIN SCALE 8 TO 10 Ondansetron HCl (Zofran Inj) 4 mg IV.PUSH Q6H PRN PRN Reason: NAUSEA Pantoprazole Sodium (Protonix) 20 mg PO DAILY [facility] Ramipril (Altace) 10 mg PO DAILY [facility] Sodium Chloride (Ns Flush) 2 ml IV.FLUSH BID [facility] Sodium Chloride (Ns Flush) 2 ml IV.FLUSH PRN PRN PRN Reason: FLUSH AFTER USING IV ACCESS Physical Exam Vital signs: Vital Signs 07/08/18 19:20 07/08/18 19:35 07/08/18 20:25 Temperature 97.4 F L Pulse Rate 78 78 70 Respiratory Rate 20 20 Blood Pressure 124/73 116/60 Pulse Oximetry 98 98 96 07/08/18 21:20 07/08/18 21:48 07/08/18 22:46 Temperature Pulse Rate 82 65 64 Respiratory Rate 18 20 18 Blood Pressure 116/60 119/72 105/87 Pulse Oximetry 98 99 97 07/09/18 00:00 07/09/18 00:30 07/09/18 01:35 Temperature 97.6 F Pulse Rate 62 69 Respiratory Rate 20 Blood Pressure 131/81 Pulse Oximetry 99 98 07/09/18 04:00 07/09/18 08:52 Temperature Pulse Rate 62 Respiratory Rate Blood Pressure Pulse Oximetry 98 Intake & Output 07/08/18 07/09/18 07/09/18 18:59 06:59 18:59 Weight 82 kg Other: # Voids 3 Weight On Admission 80.385 kg Narrative: GENERAL: Well-developed, well-nourished patient in [facility]. SKIN: Warm and dry. No rash. HEAD: Normocephalic. Atraumatic. EYES: Pupils equal and round. No scleral icterus. No injection or drainage. ENT: No nasal bleeding or discharge. Mucous membranes pink and moist. NECK: Supple. Trachea midline. CARDIOVASCULAR: Regular rate and rhythm. S1, S2 noted. No murmur appreciated. No reproducible chest pain RESPIRATORY: No accessory muscle use. Clear to auscultation. Breath sounds equal bilaterally. GASTROINTESTINAL: Abdomen soft, non-tender, nondistended. Normoactive bowel sounds x4. MUSCULOSKELETAL: No obvious deformities. Extremities without clubbing, cyanosis , or edema. NEUROLOGICAL: Awake and alert. No obvious cranial nerve deficits. Motor grossly within normal limits. 5/5 muscle strength in bilateral upper and lower extremities. Normal speech. PSYCHIATRIC: Appropriate mood and affect; insight and judgment normal. Results Labs CBC & Chem 7: 07/08/18 20:15 07/08/18 20:15 Imaging Impressions Chest X-Ray 07/08/18 19:54 CONCLUSION: The lungs are clear. Caprini VTE Risk Assessment Caprini VTE Risk Assessment: Moderate/High Risk (score >= 2) Caprini Risk Assessment Model: Point Value = 1 Point Value = 2 Point Value = 3 Point Value = 5 Age 41-60 Minor surgery BMI > 25 kg/m2 Swollen legs Varicose veins or History of unexplained or recurrent spontaneous Oral contraceptives or hormone replacement Sepsis (< 1 month) Serious lung disease, including pneumonia (< 1 month) Abnormal pulmonary function Acute myocardial infarction Congestive heart failure (< 1 month) History of inflammatory bowel disease Medical patient at bed rest Age 61-74 Arthroscopic surgery Major open surgery (> 45 min) Laparoscopic surgery (> 45 min) Malignancy Confined to bed (> 72 hours) Immobilizing plaster cast Central venous access Age >= 75 History of VTE Family history of VTE Factor V Leiden Prothrombin [id number] Lupus anticoagulant Anticardiolipin antibodies Elevated serum homocysteine Heparin-induced thrombocytopenia Other congenital or acquired thrombophilia Stroke (< 1 month) Elective arthroplasty Hip, pelvis, or leg fracture Acute spinal cord injury (< 1 month) Prophylaxis Regimen: Total Risk Factor Score Risk Level Prophylaxis Regimen 0-1 Low Early ambulation 2 Moderate Order ONE of the following: *Sequential Compression Device (SCD) *Heparin 5000 units SQ BID 3-4 Higher Order ONE of the following medications: *Heparin 5000 units SQ TID *Enoxaparin/Lovenox 40 mg SQ daily (WT < 150 kg, CrCl > 30 mL/min) *Enoxaparin/Lovenox 30 mg SQ daily (WT < 150 kg, CrCl > 10-29 mL/min) *Enoxaparin/Lovenox 30 mg SQ BID (WT < 150 kg, CrCl > 30 mL/min) AND/OR *Sequential Compression Device (SCD) 5 or more Highest Order ONE of the following medications: *Heparin 5000 units SQ TID (Preferred with Epidurals) *Enoxaparin/Lovenox 40 mg SQ daily (WT < 150 kg, CrCl > 30 mL/min) *Enoxaparin/Lovenox 30 mg SQ daily (WT < 150 kg, CrCl > 10-29 mL/min) *Enoxaparin/Lovenox 30 mg SQ BID (WT < 150 kg, CrCl > 30 mL/min) AND *Sequential Compression Device (SCD) Assessment and Plan Plan This is a 68-year-old male patient with a known medical history of CAD with 8 stents placed and hyperlipidemia presented to the ED with complaints of chest pain. Chest pain History of CAD with previous stent placement History of hyperlipidemia -Patient has been admitted to chest pain center for observation. Serial EKGs and serial troponins have been ordered for ruling out ACS purposes. Troponin trend flat. -EKG reviewed showing no acute changes, no ST changes to indicate any ischemia. -Chest x-ray reviewed showing no acute cardiopulmonary disease. -Patient has been continued on cardiac telemetry, no arrhythmias overnight. Will continue to monitor. -This is likely muscular skeletal nature although with his history of CAD as well as hyperlipidemia and smoking we will undergo a cardiac myocardial perfusion scan to further rule out any ischemia. -Continue Plavix and aspirin. -Patient stable this time and agreeable to plan. -Further hospital station treatment plan will depend on nuclear imaging results. DVT Prophylaxis: SCDs. Ambulation. Discussed with patient and Dr. Anderson. H&P: Quality VTE Deep Vein Thrombosis/Pulmonary Embolism Present on Admission: No
[2018-07-09 09:58] VITALS: BP 130/85; TEMP 96.5
[2018-07-09 10:58] VITALS: PULSE 80
--- NOTE | 2018-07-09 12:17 | NM ---
EXAM DATE: 07/09/2018 11:59 AM EST AGE/SEX: 68 years / Male INDICATIONS:Angina. Coronary artery disease CLINICAL DATA: This is the patient's initial encounter. Patient reports that signs and symptoms have been present for 1 day and indicates a pain score of 4/10. MEDICAL/SURGICAL HISTORY: Hypercholesterolemia. Hypertension. Gastroesophageal reflux disease . Coronary artery stent. COMPARISON: No prior exams available for comparison. DOSE: 8.7 mCi Tc 99m Myoview at rest 26.3 mCi [id number] at stress 0.4 mg Lexiscan STRESS SYMPTOMS: Dyspnea. EJECTION FRACTION: 60 % TECHNIQUE: The patient underwent pharmacologic stress with infusion of prescribed dose. Continuous ECG tracing was monitored during stress. Gated SPECT imaging was performed after stress and conventi onal SPECT imaging was performed at rest. The examination was performed on a SPECT/CT scanner, both attenuation and non-corrected datasets were reviewed. FINDINGS: Distribution: The maximum perfused segment at stress is in the lateral wall. Perfusion Study: The pattern of perfusion at stress is within normal limits. Gated Study: There are intact wall motion and wall thickening without hypokinetic or dyskinetic segm ents. The ejection fraction is calculated at 60%. RISK CATEGORY: Low (<1% Annual Mortality Rate) CONCLUSION: 1. Negative examination. Electronically signed by: Enmanuel Shelton MD Board Certified Radiologist 07/09/2018 12:15 PM EST
[2018-07-09] MEDS ORDERED: diazePAM 5 MG Tablet PO ONE (12:28)
--- NOTE | 2018-07-09 12:31 | TR ---
Date Performed: 07/09/2018 Time Performed: 11:09:12 DOCTOR: Ra Raygoza DRUG LIST: CLINICAL HISTORY: REASON FOR TEST: Chest pain REASON FOR ENDING: OBSERVATION: CONCLUSION: Lexiscan stress test was performed under standard four minute protocol. Radionuclide was injected one minute prior to ending the test. No electrocardiographic abormalities were present to suggest ischemia. Nuclear imaging and interpretation are pending. COMMENTS:
--- NOTE | 2018-07-09 16:03 | ECG ---
Date Performed: 07/09/2018 Time Performed: 01:33:17 PTAGE: 68 years EKG: Sinus rhythm PROBABLE SEPTAL MYOCARDIAL INFARCTION ABNORMAL ECG Since PREVIOUS TRACING , no significant change noted PREVIOUS TRACIN07/08/2018 19.42 DOCTOR: Caitlyn Hazel Interpretating Date/Time 07/09/2018 16:02:15
--- NOTE | 2018-07-09 16:09 | ECG ---
Date Performed: 07/08/2018 Time Performed: 23:23:55 PTAGE: 68 years EKG: Sinus rhythm NORMAL ECG Since PREVIOUS TRACING , no significant change noted PREVIOUS TRACIN07/08/2018 19.42 DOCTOR: Caitlyn Hazel Interpretating Date/Time 07/09/2018 16:07:37
--- NOTE | 2018-07-09 16:19 | ECG ---
Date Performed: 07/08/2018 Time Performed: 19:42:46 PTAGE: 68 years EKG: Sinus rhythm SEPTAL MYOCARDIAL INFARCTION ABNORMAL ECG Since PREVIOUS TRACING , no significant change noted PREVIOUS TRACIN08/11/2017 07.59 DOCTOR: Caitlyn Hazel Interpretating Date/Time 07/09/2018 16:17:36
== END 2018-07-09 13:00 | disposition home or self-care (01) ==
LOC: PHEDA 19:18 → PHED 19:18 → PHEDA 23:37 → PH3 23:47
PROVIDERS: ADMIT Hospitalist; ATTEND Hospitalist
CPT/HCPCS: 71010; 71045; 78452; 80053; 82550; 84484; 85025; 93005; 93017; 99285; A9502; G0378; J2785; Q9969